=== PATIENT | female | born 1940 ===

== ENCOUNTER → 2018-08-11 21:14 | Outpatient (REF) | payer MEDICARE, SELFPAY ==
[2018-08-11 22:43] LABS: Add Manual Diff / Slide Review NO; Basophils Percent Auto 0.9 % (0-2); Eosinophils Percent Auto 0.5 % (2-4); Hematocrit 43.9 % (36-46); Hemoglobin 14.9 g/dL (12.0-16.0); Lymphocytes Percent Auto 26.2 % (25-40); Mean Corpuscular HGB Conc 33.8 % (30-36); Mean Corpuscular Hemoglobin 33.7 PG (26-34); Mean Corpuscular Volume 99.6 fL (80-100); Monocytes Percent Auto 6.8 % (3-14); Neutrophils Absolute Auto 3600 /uL (1500-7000); Neutrophils Percent Auto 65.6 % (50-75); Platelet Count 273 X10^3/uL (150-400); Red Blood Cell Count 4.41 X10^6/uL (4.0-5.2); Red Cell Distribution Width 12.9 % (11.6-14.8); White Blood Cell Count 5.5 X10^3/uL (4.5-11.0)
[2018-08-12 07:09] LABS: Alanine Aminotransferase 40 IU/L (9-52); Albumin 4.6 g/dL (3.5-5.0); Albumin Globulin Ratio 1.6 (1.0-2.8); Alkaline Phosphatase 63 U/L (38-126); Aspartate Aminotransferase 23 IU/L (14-36); Bilirubin Total 1.2 mg/dL (0.2-1.3); Blood Urea Nitrogen 18 mg/dL (7-17); Calcium 10.2 mg/dL (8.4-10.2); Carbon Dioxide 27 mmol/L (22-32); Chloride 102 mmol/L (98-107); Estimated Glomerular Filt Rate > 60.0 mL/min (>60); Globulin 2.9 g/dL (1.7-4.1); Glucose 77 mg/dL (80-110); HEMOLYSIS < 15 (0-50); Magnesium 2.1 mg/dL (1.6-2.3); Potassium 4.5 mmol/L (3.4-5.1); Sodium 142 mmol/L (137-145); Total Protein 7.5 g/dL (6.3-8.2)
[2018-08-12 07:28] LABS: Free T3, Triiodothyronine Free 3.58 pg/mL (2.77-5.27); Free T4, Direct Thyroxine 0.99 ng/dL (0.78-2.19)
[2018-08-12 07:42] LABS: Thyroid Stimulating Hormone 1.26 uIU/mL (0.47-4.68)
[2018-08-13 14:27] LABS: Anti Thyroglobulin Antibody < 1 IU/mL (< 2); Thyroid Peroxidase Antibodies < 1 IU/mL (< 9)
[2018-08-13 15:09] LABS: Progesterone < 0.5 ng/mL
[2018-08-15 20:08] LABS: Estrogen 74.9 pg/mL
[2018-08-16 14:04] LABS: Testosterone Free 2.9 pg/mL (0.2-3.7); Testosterone Total 29 ng/dL (2-45)
[2018-08-18 14:50] LABS: Triiodothyronine T3 Reverse 15 ng/dL (8-25)
== END ==
LOC: LAB 21:14
PROVIDERS: Visit Provider Physician Assistant
DX: R41.82 Altered mental status, unspecified (principal); Z13.89 Encounter for screening for other disorder; N95.1 Menopausal and female climacteric states; Z79.890 Hormone replacement therapy
CPT/HCPCS: 36415; 80053; 82672; 83001; 83002; 83519; 83735; 84144; 84402; 84403; 84439; 84443; 84481; 84482; 85025; 86376; 86800

== ENCOUNTER → 2018-11-24 22:37 | Outpatient (REF) | payer MEDICARE, SELFPAY ==
[2018-11-30 10:19] LABS: Progesterone < 0.5 ng/mL
[2018-11-30 13:42] LABS: Estrogen 97.7 pg/mL
== END ==
LOC: LAB 22:37
PROVIDERS: Visit Provider Physician Assistant
DX: N95.1 Menopausal and female climacteric states (principal); N95.2 Postmenopausal atrophic vaginitis; Z79.890 Hormone replacement therapy
CPT/HCPCS: 36415; 82672; 84144; 84402; 84403